=== PATIENT | female | born 1935 | race Caucasian/White ===

== ENCOUNTER 2021-03-05 09:29 | Inpatient (IN) ==
[2021-03-05] MEDS ORDERED: Ondansetron 4 MG/2 ML VIAL IVP PRN (11:09)
[2021-03-05] MEDS ORDERED: Melatonin 3 MG TABLET PO PRN (11:09)
[2021-03-05] MEDS ORDERED: Naloxone 0.4 MG/ML INJ IVP PRN ×2 (11:09→11:23)
[2021-03-05] MEDS ORDERED: Perflutren Lipid Microsphere 1.3 ML in 0.9 % Sodium Chloride 8.7 ML IVP PRN (11:15)
[2021-03-05] MEDS: Furosemide 40 MG/4 ML VIAL IVP SCH (19:31)
[2021-03-06 06:19] LABS: Basophils # 0.1 K/mcL (0.0-0.2); Eosinophils # 0.2 K/mcL (0.0-0.6); Eosinophils % 3.9 %; Hematocrit 30.8 % (35.3-44.9); Hemoglobin 9.5 g/dL (11.5-15.4); Immature Granulocytes % 0.4 % (0-4); Lymphocytes # 1.2 K/mcL (0.6-4.6); Lymphocytes % 25.3 %; Mean Corpuscular HGB Conc 30.8 g/dL (31.6-35.5); Mean Corpuscular Hemoglobin 28.4 pg (28.0-33.3); Mean Corpuscular Volume 91.9 fL (83.0-100.0); Mean Platelet Volume 11.3 fL (9.4-12.4); Monocytes # 0.7 K/mcL (0.0-1.3); Monocytes % 13.7 %; Neutrophils # 2.7 K/mcL (1.6-8.9); Platelet Count 175 K/mcL (140-400); Red Blood Count 3.35 M/mcL (3.82-4.97); Red Cell Distribution Width 14.9 % (11.5-14.5); Segmented Neutrophils % 55.7 %; White Blood Count 4.9 K/mcL (4.3-11.1)
[2021-03-06 06:36] LABS: BUN/Creatinine Ratio 27 (6-26); Blood Urea Nitrogen 24 mg/dL (8-23); Calcium 9.1 mg/dL (8.6-10.3); Carbon Dioxide 27 mEq/L (23-29); Chloride 104 mEq/L (98-107); Glucose 85 mg/dL (70-105); Magnesium 1.4 mg/dL (1.6-2.6); Osmolality,Calculated 289 (280-300); Phosphorous 3.1 mg/dL (2.7-4.5); Potassium 3.5 mEq/L (3.5-5.1); Sodium 138 mEq/L (136-145); eGFR For African Americans > 60 (> 60); eGFR For Non-African Americans > 60 (> 60)
[2021-03-06] MEDS: Aspirin Enteric Coated 81 MG Tablet PO SCH (08:38)
[2021-03-06] MEDS: Furosemide 40 MG/4 ML VIAL IVP SCH ×2 (08:38→19:44)
[2021-03-06] MEDS: Fluticasone Propionate Nasal 50 MCG/SPRAY BOTTLE NS SCH (08:43)
[2021-03-06] MEDS: hydrALAZINE 25 MG TABLET PO SCH (19:43)
[2021-03-07] MEDS: Acetaminophen 325 MG TABLET PO PRN (02:36)
[2021-03-07] MEDS: Furosemide 40 MG/4 ML VIAL IVP SCH (08:04)
[2021-03-07] MEDS: Aspirin Enteric Coated 81 MG Tablet PO SCH (08:05)
[2021-03-07] MEDS: amLODIPine 5 MG TABLET PO SCH (08:05)
[2021-03-07] MEDS: atenoloL 50 MG TABLET PO SCH (08:05)
[2021-03-07] MEDS: hydrALAZINE 25 MG TABLET PO SCH ×2 (08:05→20:27)
[2021-03-07] MEDS: lisinopriL 20 MG TABLET PO SCH (08:05)
[2021-03-07] MEDS: Fluticasone Propionate Nasal 50 MCG/SPRAY BOTTLE NS SCH (08:05)
[2021-03-08] MEDS: Acetaminophen 325 MG TABLET PO PRN (01:18)
[2021-03-08 05:11] LABS: Hemoglobin 10.5 g/dL (11.5-15.4); Mean Corpuscular Hemoglobin 28.4 pg (28.0-33.3); Red Blood Count 3.7 M/mcL (3.82-4.97)
[2021-03-08 05:12] LABS: Hematocrit 33.7 % (35.3-44.9); Immature Platelets 12.9 % (1.1-6.1); Mean Corpuscular HGB Conc 31.2 g/dL (31.6-35.5); Mean Corpuscular Volume 91.1 fL (83.0-100.0); Mean Platelet Volume 12.8 fL (9.4-12.4); Red Cell Distribution Width 15.2 % (11.5-14.5); White Blood Count 7.8 K/mcL (4.3-11.1)
[2021-03-08 05:27] LABS: Albumin 3.1 g/dL (3.5-5.7); Bilirubin,Total 0.5 mg/dL (0.3-1.0); Calcium 8.7 mg/dL (8.6-10.3); Globulin 3.1 g/dL (2.4-3.5); Potassium 3.5 mEq/L (3.5-5.1); Total Protein 6.2 g/dL (6.4-8.9)
[2021-03-08] MEDS: Aspirin Enteric Coated 81 MG Tablet PO SCH (07:30)
[2021-03-08] MEDS: atenoloL 50 MG TABLET PO SCH (07:30)
[2021-03-08] MEDS: hydrALAZINE 25 MG TABLET PO SCH ×2 (07:30→20:52)
[2021-03-08] MEDS: amLODIPine 5 MG TABLET PO SCH (07:30)
[2021-03-08] MEDS: lisinopriL 20 MG TABLET PO SCH (07:31)
[2021-03-08] MEDS: Fluticasone Propionate Nasal 50 MCG/SPRAY BOTTLE NS SCH (07:31)
[2021-03-08] MEDS ORDERED: Furosemide 20 MG TABLET PO SCH (09:00)
[2021-03-09] MEDS: Acetaminophen 325 MG TABLET PO PRN ×2 (05:00→22:00)
[2021-03-09 09:04] LABS: Calcium 8.6 mg/dL (8.6-10.3); Potassium 3.6 mEq/L (3.5-5.1)
[2021-03-09] MEDS: hydrALAZINE 25 MG TABLET PO SCH ×2 (09:14→21:52)
[2021-03-09] MEDS: Aspirin Enteric Coated 81 MG Tablet PO SCH (09:14)
[2021-03-09] MEDS: atenoloL 50 MG TABLET PO SCH (09:15)
[2021-03-09] MEDS: amLODIPine 5 MG TABLET PO SCH (09:15)
[2021-03-09] MEDS: Fluticasone Propionate Nasal 50 MCG/SPRAY BOTTLE NS SCH ×2 (09:16→21:52)
[2021-03-09] MEDS ORDERED: 0.9 % Sodium Chloride 500 ML IVC SCH (15:45)
[2021-03-09] MEDS ORDERED: 0.9 % Sodium Chloride 250 ML IVC SCH (15:45)
[2021-03-10 07:26] LABS: Calcium 8.6 mg/dL (8.6-10.3); Potassium 3.6 mEq/L (3.5-5.1)
[2021-03-10] MEDS: amLODIPine 5 MG TABLET PO SCH (08:05)
[2021-03-10] MEDS: hydrALAZINE 25 MG TABLET PO SCH ×2 (08:05→19:55)
[2021-03-10] MEDS: Aspirin Enteric Coated 81 MG Tablet PO SCH (08:05)
[2021-03-10] MEDS: atenoloL 50 MG TABLET PO SCH (08:05)
[2021-03-10] MEDS ORDERED: 0.9 % Sodium Chloride 500 ML IVC SCH (09:45)
[2021-03-10] MEDS: Fluticasone Propionate Nasal 50 MCG/SPRAY BOTTLE NS SCH (19:55)
[2021-03-11 03:06] LABS: Calcium 8.7 mg/dL (8.6-10.3); Potassium 3.6 mEq/L (3.5-5.1)
[2021-03-11] MEDS ORDERED: 0.9 % Sodium Chloride 500 ML IVC SCH (09:15)
[2021-03-11] MEDS: amLODIPine 5 MG TABLET PO SCH (10:01)
[2021-03-11] MEDS: atenoloL 50 MG TABLET PO SCH (10:01)
[2021-03-11] MEDS: Aspirin Enteric Coated 81 MG Tablet PO SCH (10:01)
[2021-03-11] MEDS: hydrALAZINE 25 MG TABLET PO SCH ×2 (10:01→20:03)
[2021-03-11] MEDS: Acetaminophen 325 MG TABLET PO PRN (20:03)
[2021-03-11] MEDS: Fluticasone Propionate Nasal 50 MCG/SPRAY BOTTLE NS SCH (20:04)
[2021-03-12 06:47] VITALS: BP 151/51
[2021-03-12] MEDS: hydrALAZINE 25 MG TABLET PO SCH (07:47)
[2021-03-12] MEDS: atenoloL 50 MG TABLET PO SCH (07:48)
[2021-03-12] MEDS: amLODIPine 5 MG TABLET PO SCH (07:48)
[2021-03-12] MEDS: Aspirin Enteric Coated 81 MG Tablet PO SCH (07:48)
== END 2021-03-12 11:16 | DRG 291 ==
LOC: 3BNU → SUATTDRO 11:11
PROVIDERS: ADMIT Internal Medicine; ATTEND Registered Nurse